=== PATIENT | male | born 1955 | race Caucasian/White ===

== ENCOUNTER 2017-02-24 09:02 | Inpatient (IN) | payer BC, OTHER ==
[2017-02-13 10:35] LABS: % IMMATURE GRANULYOCYTES 0.7 % (0.0-1.1); ABSOLUTE IMMATURE GRANULOCYTES 0.05 10^3/uL (0.00-0.10); ADD DIFF? NO; ADD MORPH? NO; ADD SCAN? NO; ATYPICAL LYMPHOCYTE FLAG 0 (0-99); FRAGMENT RBC FLAG 0 (0-99); LEFT SHIFT FLG 0 (0-99); LIPEMIA HEMOLYSIS FLAG 80 (0-99); MEAN CELL HEMOGLOBIN 30.6 pg (27.9-34.1); MEAN CELL HEMOGLOBIN CONCENTR. 32.8 g/dL (32.4-36.7); MEAN CELL VOLUME 93.5 fL (81.5-99.8); MEAN PLATELET VOLUME 9.5 fL (8.7-11.7); PLATELET CLUMPS FLAG 0 (0-99); PLATELET COUNT 217 10^3/uL (150-400); RED CELL DISTRIBUTION WIDTH 13.3 % (11.5-15.2)
[2017-02-13 11:02] LABS: ANION GAP 9 mEq/L (8-16); CALCIUM 9.4 mg/dL (8.5-10.4); CARBON DIOXIDE 26 mEq/l (22-31); CHLORIDE 105 mEq/L (97-110); GLUCOSE 87 mg/dL (70-100); SODIUM 140 mEq/L (134-144)
--- NOTE | 2017-02-13 11:41 | GHP ---
[f rep st] PREOP HISTORY AND PHYSICAL DATE OF ADMISSION: The patient will be an a.m. admission for surgery at [facility] on February 24, 2017. PROBLEM: Left hip arthritis. HISTORY OF PRESENT ILLNESS: The patient is a 61-year-old man admitted for a left total hip arthroplasty. He has had progressive trouble with his left hip since 2004. His pain has been very severe since 2016. He is having daily pain and night pain. He only has 1 kidney and cannot take antiinflammatory medications. He has been using Tylenol. He had 1 cortisone injection in the left hip in the spring of 2015 and that helped for about 2 weeks. He cannot participate in normal activities of daily living because of his hip pain. In addition, the pain in the hip and limitation of function are interfering with his ability to do his job. He cannot participate in physical therapy because it aggravates his hip pain. PAST MEDICAL HISTORY: He is treated for hypertension and hyperthyroidism. He has a congenital 1 kidney. He is also treated for sleep apnea. No history of heart disease, stents, DVT, or hepatitis. CURRENT MEDICATIONS: Lasix 20 mg per day, lisinopril 10 mg per day, methimazole 5 mg per day. He also takes a baby aspirin every day, but he will stop that in preparation for his surgery. DRUG ALLERGIES: Penicillin causes a rash. Metal allergy: None. Latex allergy : None. SOCIAL HISTORY: The patient is . He does not smoke cigarettes. Occasionally drinks alcohol. 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 FAMILY HISTORY: Positive for myocardial infarction and diabetes. PHYSICAL EXAMINATION: GENERAL: Height 5 feet, 11 inches. Weight 290 pounds. BMI 40. HEENT: Eyes: Conjunctivae and sclerae are clear. Pupils are round and reactive. Mouth: Good oral hygiene. No loose teeth. CHEST: Clear. HEART: Regular rhythm. No murmurs. EXTREMITIES: Pertinent findings limited to his left hip. He has full hip extension and 90 degrees of flexion. As he flexes the hip, he develops a 20-degree external rotation contracture and has no further internal or external rotation. Hip motion is painful. IMAGING: His films show degenerative arthritis of the left hip. He is bone on bone. He has peripheral osteophytes. His leg lengths are approximately equal. He also has some cartilage space narrowing in his right hip. IMPRESSION ON ADMISSION: 1. Left hip, degenerative arthritis. He is prepared for a left total hip arthroplasty. 2. Treatment for hypertension. 3. Treatment for hyperthyroidism. 4. The patient has only 1 kidney. 5. Obesity. PLAN: He will undergo a left total hip arthroplasty. The surgery has been described to him including the risks, complications, expectations, and recovery time. I have discussed with him the risk of dislocation, leg length inequality , infection, and sciatic nerve injury. He knows that he is relatively young for a total hip replacement and might require revision surgery in the future. His size and bulk will make the surgery more difficult and riskier. All his questions have been answered and he consents to surgery. /[id number]/MODL MTDD
[~2017-02-24 09:02] MED LIST: CHLORHEXIDINE GLUC HIBICLENS 118 ML BTL TP ONE; DEXAMETHASONE 4 MG/ML VIAL IVP ONE; FAMOTIDINE 20 MG TAB PO ONE; NS IV ONE; POVIDONE-IODINE 20 ML in SODIUM CL IRRIG SOLUTION 500 ML IRR ONE; TRANEXAMIC ACID IV ONE
[2017-02-24] MEDS ORDERED: ACETAMINOPHEN 325 MG TAB ONE (10:02)
[2017-02-24] MEDS ORDERED: DEXAMETHASONE 4 MG/ML VIAL ONE ×2 (10:02→12:49)
[2017-02-24] MEDS ORDERED: CEFAZOLIN 2 GM/DEXTROSE/100 ML BAG IV ONE (10:02)
[2017-02-24] MEDS ORDERED: LIDOCAINE 1% 2 ML INJ ONE (10:03)
[2017-02-24] MEDS ORDERED: FAMOTIDINE 20 MG/2 ML SDV ONE (10:03)
[2017-02-24] MEDS ORDERED: FAMOTIDINE 20 MG TAB ONE (10:05)
[2017-02-24] MEDS ORDERED: SKIN ADHESIVE (DERMABOND) 1 EACH TP ONE (10:21)
[2017-02-24] MEDS ORDERED: ceFAZolin 1 GM/5 ML SYR ONE (10:22)
[2017-02-24] MEDS ORDERED: CEFAZOLIN 2 GM/DEXTR 100 ML IV ONE (10:30)
[2017-02-24] MEDS ORDERED: ROPIVACAINE 0.2% 80 MG, EPINEPHrine 0.2 MG in BAG 0 ML IU ONE ×2 (10:30→12:30)
[2017-02-24] MEDS ORDERED: fentaNYL 100 MCG/2 ML INJ ONE ×3 (10:53→15:08)
[2017-02-24] MEDS ORDERED: PROPOFOL 200 MG/20 ML VIAL ONE ×4 (10:53→13:56)
[2017-02-24] MEDS ORDERED: MIDAZOLAM 2 MG/2 ML VIAL ONE (12:01)
[2017-02-24] MEDS ORDERED: BUPIVACAINE 0.25% 30 ML SDV ONE (12:22)
[2017-02-24] MEDS ORDERED: BUPIVACAINE 0.5% 30 ML SDV ONE (12:23)
[2017-02-24] MEDS ORDERED: morphINE *ANESTHESIA ONLY* 10 MG/ML VIAL ONE (12:52)
[2017-02-24] MEDS ORDERED: ROCURONIUM 50 MG/5 ML VIAL ONE (12:52)
[2017-02-24] MEDS ORDERED: ceFAZolin 1 GM VIAL ONE (12:56)
[2017-02-24] MEDS ORDERED: REMIFENTANIL HCL 1 MG VIAL ONE (13:22)
[2017-02-24] MEDS ORDERED: ONDANSETRON 4 MG/2 ML VIAL ONE (14:06)
[2017-02-24] MEDS ORDERED: PHENYLEPHRINE HCL 100 MCG/ML SYR ONE (14:13)
[2017-02-24] MEDS ORDERED: GLYCOPYRROLATE 0.2 MG/1 ML VIAL ONE (14:18)
[2017-02-24] MEDS ORDERED: NEOSTIGMINE METHYLSULFATE 5 MG/5 ML SYR ONE (14:18)
--- NOTE | 2017-02-24 14:28 | POSTOPPROG ---
Post Op Note Date of Operation: 02/24/17 Surgeon: Watson Rocha Fleet Manager/Dispatch: Domingo Anesthesiologist: Blake Anesthesia: GET(General Endotracheal) Post-op Diagnosis: L hip arthritis Procedure: L CATRINA Inf/Abcess present in the surg proc area at time of surgery?: No EBL: 100-500
[2017-02-24] MEDS ORDERED: TEMAZEPAM 15 MG CAP PO PRN (14:41)
[2017-02-24] MEDS ORDERED: POLYETHYLENE GLYCOL 3350 17 GM PKT PO PRN (14:41)
[2017-02-24] MEDS ORDERED: DIPHENOXYLATE/ATROPINE LOMOTIL 1 TAB PO PRN (14:41)
[2017-02-24] MEDS ORDERED: METOCLOPRAMIDE 10 MG/2 ML VIAL IVP PRN (14:41)
[2017-02-24] MEDS ORDERED: LACTULOSE 20 GM/30 ML UDCUP PO PRN (14:41)
[2017-02-24] MEDS ORDERED: MAGNESIUM HYDROXIDE 30 ML UDCUP PO PRN (14:41)
[2017-02-24] MEDS ORDERED: PHARMACY PAIN CONSULT 1 EA MISC PRN (14:41)
[2017-02-24] MEDS ORDERED: traMADol 50 MG TAB PO PRN (14:41)
[2017-02-24] MEDS ORDERED: CYCLOBENZAPRINE 10 MG TAB PO PRN (14:41)
[2017-02-24] MEDS ORDERED: ONDANSETRON 4 MG/2 ML VIAL IVP PRN (14:41)
[2017-02-24] MEDS ORDERED: diphenhydrAMINE 25 MG CAP PO PRN (14:41)
[2017-02-24] MEDS ORDERED: BISACODYL 10 MG SUPP PR PRN (14:41)
[2017-02-24] MEDS ORDERED: PROMETHAZINE HCL 25 MG SUPPR PR PRN (14:41)
[2017-02-24] MEDS ORDERED: ONDANSETRON DISINTEGRATING 4 MG TAB PO PRN (14:41)
[2017-02-24] MEDS ORDERED: NS 500 ML IV PRN (14:41)
--- NOTE | 2017-02-24 15:29 | GOP ---
[f rep st] OPERATIVE REPORT DATE OF OPERATION: 02/24/2017 SURGEON: Watson Rocha MD CLOAK ROOM ATTENDANT: 1. Garry Harris CFA. 2. Jatin Tran PA-C. ANESTHESIA: General by Dr. Lozano. PREOPERATIVE DIAGNOSIS: Left hip degenerative arthritis. POSTOPERATIVE DIAGNOSIS: PROCEDURE PERFORMED: Left total hip arthroplasty, Oxinium femoral head on highly cross-linked polye thylene cup liner. FINDINGS: DESCRIPTION OF PROCEDURE: The patient was given 2 g of IV Ancef preoperatively within 60 minutes of surgery. He was also given IV tranexamic acid at a dose of 20 mg/kg. [facility], and Dr. Lozano attempted a spinal anesthetic. This was unsuccessful. He was placed contreras pine and given general anesthesia. A Calero catheter was not used. A KEE stocking and SCD were appl ied to the nonoperative leg. He was rolled to the right lateral decubitus position. The position w as secured with the pegboard table attachment. His height was 5 feet 11 inches, weight 290 pounds, BMI 40. He was a very large man with a muscular hip and buttocks. He was rolled to the right later al decubitus position. The position was secured with the pegboard table attachment. An axillary ro ll was used, and all pressure points were carefully padded. I was careful to lock his pelvis in a v ertical position. Positioning was difficult because of his size. His perineum was isolated with pl astic adhesive drapes. His left hip and left lower extremity were prepped with ChloraPrep. They we re draped free using sterile sheets, stockinette, and Ioban plastic drapes. The [employer] time-out was performed to verify the correct surgical side and site an d the correct patient identity. The [place] time-out was also performed. I made a 7-inch straight oblique posterolateral hip skin incision. Because of his size, I made a la rger than normal incision. The subcutaneous tissues were sharply divided, and hemostasis was obtain ed using electrocautery. His fascia chilo was identified and split along the axis of its fibers. I curved posteriorly and proximally and split the fascia of the gluteus aleena and bluntly split the muscle fibers in line with their orientation. The Charnley self-retaining retractor was inserted. His sciatic nerve was located, partially exposed, and protected throughout the procedure. The exter nal rotators and the posterior hip capsule were divided as separate layers at the base of the femora l neck, tagged and reflected posteriorly. The exposure was deep and was difficult because of his si ze. A smooth 8-inch Steinmann pin was inserted vertically into the ilium superior to the acetabulum . An 8-inch drill bit was inserted vertically into the greater trochanter and parallel to the first pin. The distance between the 2 was measured for leg length reference. His femoral head was dislo cated posteriorly. Severe degenerative changes were present on the femoral head. The femoral neck was osteotomized at the appropriate level and inclination. I was careful to preserve all the posterior capsule and most of the anterior capsule. The remnant o f his labrum was excised. I prepared the femur first. This allowed me to assisted living coordinator the amount of natural femoral neck anteversion . This, in turn, allowed me to later determine the correct amount of cup anteversion. He had appro ximately 10 degrees of natural femoral neck anteversion. The canal was opened laterally with a box chisel. I reamed and broached sequentially up to size 14. I used a size 14 broach as a trial stem. I was careful to lateralize adequately. Appropriate retractors were inserted to expose the acetabulum. The acetabulum was reamed sequential ly up to a size 57. I selected a 58 mm Gauthier and Nephew R3 cluster hole hemispherical shell. This was tapped securely into place in the proper degree of inclination and anteversion. I used the marte sverse acetabular ligament and other acetabular bony landmarks to help me properly orient the cup. I inserted one 30 mm supplemental fixation screws through the shell. I also inserted a screw and me kate dome hole plug. I took an intraoperative cross-table AP pelvis x-ray to check leg length and component size. The po sition of the cup was excellent. His leg lengths were very close. I felt the stem was undersized a nd was in a slight amount of varus. I selected the Gauthier and Nephew R3 highly cross-linked 20 degree lipped polyethylene liner. This wa s inserted and tapped securely into place. I dialed the 20-degree overhang so that it was directly posterior. I then re- worked the femur. I made an additional effort to lateralize the femoral component. I th en reamed and broached up to a size 16. I selected the Gauthier and Nephew Synergy stem in a size 16 w ith standard offset. This was inserted press-fit and was very tight. I did 1 final trial reduction and confirmed that the 0 neck length with a 36 mm head was the proper combination. I selected the Gauthier and Nephew Oxinium head with an outside diameter of 36 mm and a neck length of 0 mm. This was tapped securely onto the clean trunnion. His acetabulum was irrigated, cleaned, and the hip was re duced 1 final time. He had excellent anterior and posterior stability and appropriate length. 40 mL of the joint anesthetic cocktail were injected into the capsule, the deep musculature, and the subcutaneous tissues around the skin edges. The joint was thoroughly irrigated 1 final time with a dilute Betadine solution. His sciatic nerve was reinspected and looked unharmed. The external rot ators and the posterior hip capsule were repaired in separate layers with #2 FiberWire sutures throu gh drill holes in the greater trochanter. This provided a very strong posterior capsular and popcorn attendant al rotator repair. The fascia chilo was closed with several interrupted [id number] #2 FiberWire sutures followed by a running #2 barbed Ethicon Stratafix PDO suture. Subcutaneous tissues were cl osed with a running 0 barbed Ethicon Stratafix Monoderm suture. The subcutaneous tissues were close d with some supplemental 2-0 Monocryl interrupted sutures. His skin was closed with a running 3-0 b arbed Ethicon Stratafix Monoderm subcuticular suture. The skin edges were reapproximated and sealed with Dermabond glue. The wound was covered with a strip of Telfa, and everything was held in place with a piece of clear plastic Tegaderm. A long-leg KEE stocking and SCD were applied to his left lower extremity. He wore stocking and SCD on the opposite leg during the procedure. An abduction pillow was placed between his knees. He was awakened from anesthesia and rolled to the supine position on his [facility]. He was taken to the PACU in satisfactory condition. There were no recognized intraoperative complications. The sponge and needle count were correct on 2 occasions. I used a Gauthier and Nephew R3 hemispherical cluster hole acetabular shell with an outside diameter of 58 mm. The liner was a Gauthier and Nephew R3 20-degree lipped highly cross-linked liner with an insi de diameter of 36 mm. I inserted one 30 mm supplemental fixation screw through the shell. The femo ral component was a standard offset Gauthier and Nephew Synergy stem in a size 16 and press-fit. The f emoral head was a Gauthier and Nephew Oxinium head with a 0 neck length and a 36 mm outside diameter. The estimated blood loss was about 400 mL. Garry Harris and Rodolfo Tran acted as surgical first assistants. Their assistance was a medical necessity. /[id number]/MODL
[2017-02-24] MEDS: oxyCODONE IR 5 MG TAB PO PRN ×2 (16:19→20:50)
[2017-02-24] MEDS: TRANEXAMIC ACID 650 MG TAB PO SCH ×2 (16:20→20:17)
[2017-02-24] MEDS: LR 1,000 ML IV SCH ×2 (16:28→23:31)
[2017-02-24] MEDS: ACETAMINOPHEN 325 MG TAB PO SCH ×2 (18:15→23:31)
[2017-02-24] MEDS: FAMOTIDINE 20 MG TAB PO SCH (20:15)
[2017-02-24] MEDS: SENNOSIDES/DOCUSATE SODIUM TAB PO SCH (20:16)
[2017-02-24] MEDS: ASPIRIN 325 MG TAB PO SCH (20:16)
[2017-02-24] MEDS: ceFAZolin 2 GM/DEXTROSE 100 ML IV SCH (20:18)
[2017-02-25] MEDS: ceFAZolin 2 GM/DEXTROSE 100 ML IV SCH (03:55)
[2017-02-25] MEDS: oxyCODONE IR 5 MG TAB PO PRN ×2 (03:55→15:34)
[2017-02-25 04:40] LABS: HEMATOCRIT 50.7 % (40.0-51.0); HEMOGLOBIN 16.7 g/dL (13.7-17.5)
[2017-02-25] MEDS: ACETAMINOPHEN 325 MG TAB PO SCH ×3 (05:22→15:34)
--- NOTE | 2017-02-25 08:56 | SOAPPROG ---
SOAP Progress Note Assessment/Plan: Assessment: Afebrile. Awake and alert Moderate pain. Dsg is dry. H/H is good. Sciatic nerve intact. Films look good. Plan:Up with PT. DC later today. 02/25/17 08:55 Objective: Vital Signs Temp Pulse Resp BP Pulse Ox 36.6 C 60 18 116/76 95 02/25/17 07:43 02/25/17 07:43 02/25/17 07:43 02/25/17 07:43 02/25/17 07:43 Laboratory Results 02/25/17 04:26 02/13/17 09:41 02/24/17 02/25/17 02/26/17 05:59 05:59 05:59 Intake Total 2550 Output Total 415 Balance 2135 ICD10 Worksheet Patient Problems: Problems Problem Status Onset Osteoarthritis of left hip Acute
[2017-02-25] MEDS ORDERED: FERROUS SULFATE 140 MG TAB.ER PO SCH (09:00)
[2017-02-25] MEDS ORDERED: METHIMAZOLE 5 MG TAB PO SCH (09:00)
[2017-02-25] MEDS ORDERED: CHOLECALCIFEROL VIT D3 1,000 UNITS TAB PO SCH (09:00)
[2017-02-25] MEDS ORDERED: FUROSEMIDE 20 MG TAB PO SCH (09:00)
[2017-02-25] MEDS ORDERED: MULTIVITAMINS 1 EACH TAB PO SCH (09:00)
[2017-02-25] MEDS ORDERED: LISINOPRIL 5 MG TAB PO SCH (09:00)
[2017-02-25] MEDS: TRANEXAMIC ACID 650 MG TAB PO SCH (09:19)
[2017-02-25] MEDS: FAMOTIDINE 20 MG TAB PO SCH (09:19)
[2017-02-25] MEDS: ASPIRIN 325 MG TAB PO SCH (09:19)
[2017-02-25] MEDS: SENNOSIDES/DOCUSATE SODIUM TAB PO SCH (09:20)
--- NOTE | 2017-02-25 09:21 | GDS ---
[f rep st] DISCHARGE SUMMARY ADMISSION DIAGNOSIS: Left hip severe degenerative arthritis. DISCHARGE DIAGNOSIS: Left hip severe degenerative arthritis. OPERATION PERFORMED: On February 24, 2017, a left total hip arthroplasty, Oxinium femoral head on high ly cross-linked polyethylene cup liner. POSTOPERATIVE COMPLICATIONS: None. CONDITION ON DISCHARGE: Improved. DESCRIPTION OF HOSPITAL COURSE: The patient was admitted to the hospital the morning of surgery. H is admission CBC and electrolytes were normal. The patient has only 1 kidney. His BUN was 25, his creatinine was 2.0. The same day, under general anesthesia, he underwent a left total hip arthropla sty. Postoperatively, he was treated with multimodal DVT prophylaxis, including aspirin and early m obilization. On the first postoperative day, his hemoglobin and hematocrit were 16.7 and 50.7. He was seen by Physical Therapy and made good progress with ambulation and stairs. By the time of disc harge, he was afebrile, his wound was clean and dry, and he was independently walking. DISPOSITION: Patient is discharged to his home. DISCHARGE INSTRUCTIONS: 1. He will go to outpatient physical therapy. 2. He can progress to full weightbearing as tolerated. 3. Wear KEE stockings for 1 week. 4. Use an abduction pillow in bed for 3 weeks. 5. Continue aspirin 325 mg p.o. daily for 21 days. 6. He has prescriptions for oxycodone and tramadol for pain control. FOLLOWUP: I will see him back in the office on February 17, 2017. If there are any problems, he is to call me at the office. /[id number]/MODL
[2017-02-25 09:26] LABS: GLOMERULAR FILTRATION RATE 34
[2017-02-25 09:27] LABS: HEMATOCRIT 54.3 % (40.0-51.0); HEMOGLOBIN 17.8 g/dL (13.7-17.5); RED BLOOD CELL COUNT 5.81 10^6/uL (4.40-6.38)
[2017-02-25 12:33] VITALS: BP 104/67; PULSE 61; RESP 16; TEMP 98.2
[2017-02-25 15:17] VITALS: O2SAT 91
--- NOTE | 2017-02-25 16:41 | PDIAF ---
- Diagnosis Diagnosis: Hip OA Code Status: Full Code - Medication Management Discharge Medications: Medications to Continue on Transfer Cholecalciferol Vit D3 [Vitamin D3 (*)] 1,000 units PO DAILY 02/04/17 [Last Taken 02/17/17] Furosemide [Lasix 20 MG (*)] 20 mg PO DAILY 02/04/17 [Last Taken 02/23/17] Gluc Hanna/Chondro Hanna A/Vit C/Mn [Glucosamine Chondroitin Tab] 1 each PO BID [Last Taken 02/03/17] Lisinopril [Zestril 5 mg (*)] 5 mg PO DAILY 02/04/17 [Last Taken 02/23/17] Methimazole [Tapazole 5MG (*)] 5 mg PO DAILY 02/04/17 [Last Taken 02/23/17] Multivitamins [Multivitamin (*)] 1 each PO DAILY 02/04/17 [Last Taken 02/17/17] Acetaminophen [Tylenol 325mg (*)] 650 mg PO Q6HRS #0 tab 02/25/17 [Last Taken Unknown] Aspirin [Aspirin 325 mg (*)] 325 mg PO DAILY #21 tab 02/25/17 [Last Taken Unknown] Ferrous Sulfate [Slow Fe 140 MG (*)] 140 mg PO DAILY #30 tab.er 02/25/17 [Last Taken Unknown] Ondansetron Odt [Zofran Odt 4 mg (*)] 4 mg PO Q4HRS PRN #0 tab 02/25/17 [Last Taken Unknown] oxyCODONE IR [Oxycodone Ir (*)] 5 - 10 mg PO Q3HRS PRN #0 tab 02/25/17 [Last Taken Unknown] traMADol [Ultram 50 mg (*)] 50 mg PO Q6HRS PRN #0 tab 02/25/17 [Last Taken Unknown] Discharge Medications: Refer to the Discharge Home Medication list for PRN reason. PICC Care - Routine: N/A - Orders Services needed: Home Care, Physical Therapy, Occupational Therapy Home Care Face to Face: I certify that this patient was under my care and that I had the required [id number] encounter meeting the encounter requirements on the discharge day. My findings support the fact that the patient is homebound as defined in CMS Chapter 7 Medicare Benefits Manual 30.1.1, The condition of the patient is such that there exists a normal inability to leave home and consequently, leaving home would require a considerable and taxing effort. Diet Recommendation: no restrictions on diet Diet Texture: Regular Texture Diet Calero: Not applicable Jose Ramon Stockings Discontinue Date: 1 week Wound Care Instructions: keep clean and dry. You may shower. Activity/Weight Bearing Restrictions: as tolerated. - Follow Up Care Current Providers and Referrals: FARHAN GUTIÉRREZ [Primary Care Provider] - Watson Rocha MD [Medical Doctor] - 03/19/17 9:00 am
== END 2017-02-25 16:54 | disposition home health service (06) | DRG 470 ==
LOC: F3N 09:02 → EDSEX 09:02 → F3N 15:55
PROVIDERS: ADMIT Orthopaedic Surgery; ATTEND Orthopaedic Surgery
PROC: 0SRB0JZ Replacement of Left Hip Joint with Synthetic Substitute, Open Approach (ICD-10-PCS; principal; 2017-02-24 11:00)
DX: M16.12 Unilateral primary osteoarthritis, left hip (principal); Q60.0 Renal agenesis, unilateral; Z68.41 Body mass index [BMI] 40.0-44.9, adult; I10 Essential (primary) hypertension; E03.9 Hypothyroidism, unspecified; G47.33 Obstructive sleep apnea (adult) (pediatric); E66.9 Obesity, unspecified; Z88.0 Allergy status to penicillin
CPT/HCPCS: 97116-GP; 97161-GP; 97165-GO; 97530-GP; C1713; J0171; J0690; J1100; J2250; J2370; J2405; J2704; J2710; J2795; J3010